=== PATIENT | male | born 1945 | race Caucasian/White ===

== ENCOUNTER 2018-06-30 08:37 | Day surgery (SDC) | payer MEDICARE, SELFPAY ==
[2018-06-30] VITALS (8 sets, daily range): BP systolic 84–156; BP diastolic 45–74; PULSE 58–98; RESP 10–16; TEMP 36.2–37.1; O2SAT 97–100; BMI 23.0
--- NOTE | 2018-06-30 | PATH_ITS ---
[facility] Accession Number: [id number] . 01 Material submitted: . ASCENDING COLON BIOPSY . 02 Diagnosis: Ascending Colon, Biopsy: Fragments of tubular adenoma. MRV/07/04/2018 . 02 Electronically signed: . Mendel Beth MD, PhD, Pathologist NPI- [id number] . 01 Gross description: . ASCENDING COLON BIOPSY: Received in formalin are multiple fragment(s) of cooper, soft tissue measuring 0.5 x 0.5 x 0.2 cm in aggregate submitted entirely in 1 cassette(s) /TRC /TRC . 02 Pathologist provided ICD-10: D12.2 . 02 CPT . 511037 Performed at: [address] [facility] [address] [id number] MD Payam March MD Phone: [phone] Performed at: 02 [facility] [address] [place], [place] [id number] MD Stuart Pollock MD Phone: [phone]
[2018-06-30] MEDS: SODIUM CHLORIDE 0.9% 1,000 ML 200 ML IV (09:21)
--- NOTE | 2018-06-30 09:45 | SUR.PREOP ---
Pt is ready for Endo Suite at this time. at bedside, admissions gate attendant completed, NS at TKO, medications have been reviewed, consent has been signed by Pt and witness. Awaiting MD to sign consent and assess Pt at the bedside.
--- NOTE | 2018-06-30 10:06 | PM.HP.1 ---
History of Present Illness Date Patient Seen: 06/30/18 Time Patient Seen: 10:07 Chief complaint: colonoscopy 13478 Narrative: Patient is a 72-year-old who has never had a colonoscopy here for screening exam. Patient History Medical History COPD (chronic obstructive pulmonary disease) (Chronic) Essential hypertension (Chronic) Surgical History History of bilateral inguinal hernia repair (Resolved) History of tonsillectomy (Resolved) Family & Social History Social History: household members spouse Smoked many years ago Meds Home Medications Medication Instructions Recorded Confirmed Type ASPIRIN (#ASPIRIN CHILDREN'S) 81 mg PO DAILY #0 05/10/12 06/30/18 History colchicine 0.6 mg PO SEEINSTR PRN #0 05/10/12 06/30/18 History fluticasone-salmeterol [Advair 1 puff INHALATION DAILY #0 05/10/12 06/30/18 History Diskus] hydrochlorothiazide 25 mg PO DAILY #0 05/10/12 06/30/18 History tiotropium bromide [Spiriva with 1 dose INHALATION DAILY #0 05/10/12 06/30/18 History HandiHaler] albuterol sulfate 2 puff INHALATION QD-TID PRN 06/30/18 06/30/18 History diltiazem HCl [Cartia XT] 240 mg PO DAILY 06/30/18 06/30/18 History losartan 25 mg PO DAILY 06/30/18 06/30/18 History prednisone 2 mg PO DAILY 06/30/18 06/30/18 History probenecid 500 mg PO DAILY 06/30/18 06/30/18 History rosuvastatin [Crestor] 10 mg PO DAILY 06/30/18 06/30/18 History Allergies Allergy/AdvReac Type Severity Reaction Status Date / Time Penicillin Allergy Unknown Uncoded 02/15/18 12:57 Review of Systems Review of Systems All systems reviewed & are unremarkable except as noted in HPI and below Exam Vital Signs (past 8 hours): - 06/30/18 08:53 Temperature 97.2 F L Pulse Rate 98 H Respiratory Rate 16 Blood Pressure 156/74 H Pulse Oximetry 100 Oxygen Delivery Method Room Air Narrative Exam Narrative: Operative no apparent distress. His eyes are nonicteric. Lungs are clear no rales or rhonchi. Heart regular rate and rhythm no murmur gallop. Abdomen is scaphoid soft lax abdominal wall. Nontender without mass. Alert and oriented x3. Assessment & Plan Plan: Assessment/Plan Narrative: For colonoscopy. Bowel prep went well. I have discussed the procedure and the rationale with the patient including risks of bleeding, perforation which would necessitate a major operation, failure to find remove all lesions and the potential to tattoo. They appeared to understand and wished to proceed.
--- NOTE | 2018-06-30 10:11 | PM.PREOP ---
Pre-operative Note Interval Note Pre-op Check: Yes History & Physical exam performed today by Physician Changes: No ASA Class (for procedural sedation): II
[2018-06-30] MEDS: fentaNYL 250 MCG/5 ML INJ IV (10:16)
[2018-06-30] MEDS: MIDAZOLAM 5 MG/5 ML VIAL IV (10:16)
--- NOTE | 2018-06-30 10:47 | PM.OP.ENDO ---
Operative Date/Time/Diagnoses Date of procedure: 06/30/18 Time of procedure: 10:47 Pre-op diagnosis: Screening exam due to age. First colonoscopy. Post-op diagnosis: same (Two small ascending colon polyps. Had internal hemorrhoids. Sigmoid diverticulosis.) Procedure & Clinicians Study performed: Colonoscopy with cold biopsy Same procedure as scheduled: Yes Indications: Screening Surgeon: Umesh Oliver Procedure Notes SCOAP/Timeout: Performed Procedure in detail: The patient was placed in the left lateral decubitus position and underwent IV sedation directed by the surgeon consisting of fentanyl and Versed. Digital exam was unremarkable. The scope was inserted and advanced through the rectum into the sigmoid, descending, transverse, and ascending colon.[The patient had sigmoid diverticulosis]. The cecum was reached identified by the ileocecal valve and the appendiceal opening. The scope was gradually brought out. Polyps were found at[the ascending colon. Two small lesions adjacent to 1 another were completely removed.]. The scope ultimately was retroflexed in the rectum. The appearance was[remarkable for internal hemorrhoids]. The scope was removed and the patient tolerated the procedure well Scope withdrawal time: 6.5 min Sedation minutes: 23 Findings: diverticulitis, internal hemorrhoids and polyp (Two small right-sided colon) Specimen(s): other (Polyps) Complications: none Recommendations: Colonscopy in 5 years (Unless polyps are not neoplastic. Then he does not need another screening exam.) Follow up: as needed Disposition: PACU
--- NOTE | 2018-09-08 16:10 | PM.PNPO.1 ---
Subjective Date Patient Seen: 09/08/18 Time Patient Seen: 16:10 Interval history: Post-operative day 2 Patient reports he is having some more pain, but not like it was. Overall he is doing well. Exam Vital Signs (past 8 hours): Oxygen Delivery Method Room Air [facility] Head: normal to inspection Face and sinus: tenderness (left side in the area of the previous swelling) Mouth: oral mucosae normal, lip normal, tongue normal, oropharynx normal and restricted motion (but improving) Teeth and gingiva: other (drains present. No intraoral drainage noted.) Assessment & Plan Post-op Postoperative Procedures Operation Date: 06/30/18 09:45 Actual Procedures Side Surgeon p Colonoscopy with biopsies Umesh Oliver MD
--- NOTE | 2018-09-08 16:13 | P.PN_ITS ---
Subjective Date Patient Seen: 09/08/18 Time Patient Seen: 16:10 Interval history: Post-operative day 2 Patient reports he is having some more pain, but not like it was. Overall he is doing well. Exam Vital Signs (past 8 hours): Oxygen Delivery Method Room Air [facility] Head: normal to inspection Face and sinus: tenderness (left side in the area of the previous swelling) Mouth: oral mucosae normal, lip normal, tongue normal, oropharynx normal and restricted motion (but improving) Teeth and gingiva: other (drains present. No intraoral drainage noted.) Assessment & Plan Post-op Postoperative Procedures Operation Date: 06/30/18 09:45 Actual Procedures Side Surgeon p Colonoscopy with biopsies Umesh Oliver MD
== END 2018-06-30 11:51 | disposition home or self-care (01) ==
PROVIDERS: Family Provider Family Medicine; PCP Family Medicine; Visit Provider Specialist
PROC: 0DJD8ZZ Inspection of Lower Intestinal Tract, Via Natural or Artificial Opening Endoscopic (ICD-10-PCS; CPT 45378; principal; 2018-06-30 09:45)
DX: Z12.11 Encounter for screening for malignant neoplasm of colon (principal); J44.9 Chronic obstructive pulmonary disease, unspecified; I10 Essential (primary) hypertension; Z87.891 Personal history of nicotine dependence; K57.30 Diverticulosis of large intestine without perforation or abscess without bleeding; K64.8 Other hemorrhoids; D12.2 Benign neoplasm of ascending colon
CPT/HCPCS: 45380; 88305; 99152; 99153; J2250; J3010

== ENCOUNTER → 2018-10-20 10:55 | Outpatient (CLI) | payer MEDICARE, SELFPAY ==
--- NOTE | 2018-10-20 | DI.RAD.S_ITS ---
PROCEDURE: FL BARIUM SWALLOW INDICATIONS: SWALLOWING ABNORMALITY/ DRY THROAT COMPARISON: None. FINDINGS: Function: There is esophageal dysmotility and decreased peristalsis. There is delayed esophageal clearance. No elicited gastroesophageal reflux. Morphology: Air-contrast images demonstrate normal mucosal morphology. Single contrast views show no esophageal strictures, extrinsic mass effects, or diverticula. Limited images of the stomach demonstrate normal appearance. IMPRESSION: Esophageal dysmotility. Dictated by: Jimmy Christie M.D. on 10/20/2018 at 13:16 Approved by: Jimmy Christie M.D. on 10/20/2018 at 13:17
== END ==
PROVIDERS: Family Provider Family Medicine; PCP Family Medicine; Visit Provider Family Medicine
DX: R13.10 Dysphagia, unspecified (principal); J39.2 Other diseases of pharynx; K22.4 Dyskinesia of esophagus
CPT/HCPCS: 74220

== ENCOUNTER → 2020-07-04 14:54 | Outpatient (CLI) | payer MEDICARE, SELFPAY ==
--- NOTE | 2020-07-04 | DI.RAD.S_ITS ---
PROCEDURE: XR CERVICAL SPINE 2V OR 3V INDICATIONS: shoulder pain no trauma TECHNIQUE: 4 view(s) of the cervical spine were acquired. COMPARISON: None. FINDINGS: Bones: No fractures or dislocations to the C7 level. The lateral masses of C1 appear intact on the odontoid view. No suspicious bony lesions. There is mild anterolisthesis seen at the C4-C5 level. There is moderate to severe disc space narrowing seen at C5-C6, with mild to moderate disc space narrowing at C6-C7. Endplate irregularity and sclerosis are seen, which are most prominent at the C5-C6 level. There is overall straightening of the normal cervical lordosis. Soft tissues: No prevertebral soft tissue swelling. The visualized lung apices are unremarkable. IMPRESSION: Cervical spine degenerative changes are seen, which are most prominent at the C5-C6 level. Dictated by: Asif Arthur M.D. on 07/04/2020 at 15:02 Approved by: Asif Arthur M.D. on 07/04/2020 at 15:03
--- NOTE | 2020-07-04 | DI.RAD.S_ITS ---
PROCEDURE: XR LUMBAR SPINE 2-3V INDICATIONS: LBP no trauma TECHNIQUE: 3 views of the lumbar spine were acquired. COMPARISON: [facility], CR, XR CERVICAL SPINE 2V OR 3V, 07/04/2020, 14:57. [facility], CR, L-SPINE 2-3 VIEWS, 12/23/2008, 9:57. FINDINGS: Bones: There is mild to moderate levoconvex thoracolumbar scoliotic curvature. There is minimal retrolisthesis seen at L1-L2 and L2-L3. There is at least moderate disc space narrowing at L5-S1. There is moderate disc space narrowing at L4-L5. Relatively prominent lower lumbar spine facet arthropathy is seen. Bridging anterior osteophytes are seen T12 through L3. 5 nonrib-bearing, lumbar type vertebral bodies are seen. No displaced fractures are seen. No suspicious lytic or blastic lesions are seen. Soft tissues: Overlying bowel gas pattern is normal. No suspicious soft tissue calcifications. Atherosclerotic calcification is noted. IMPRESSION: Lumbar degenerative changes are seen, which are most prominent at the L5-S1 level. Mild to moderate dextroconvex scoliotic curvature is seen. The degenerative changes have progressed compared to 2008. Dictated by: Asif Arthur M.D. on 07/04/2020 at 15:03 Approved by: Asif Arthur M.D. on 07/04/2020 at 15:05
== END ==
PROVIDERS: Family Provider Family Medicine; PCP Family Medicine; Referring Provider Family Medicine; Visit Provider Family Medicine
DX: M54.2 Cervicalgia (principal); M54.5 Low back pain; M47.812 Spondylosis without myelopathy or radiculopathy, cervical region; M25.519 Pain in unspecified shoulder; M47.817 Spondylosis without myelopathy or radiculopathy, lumbosacral region; M41.85 Other forms of scoliosis, thoracolumbar region
CPT/HCPCS: 72040; 72100

== ENCOUNTER → 2023-08-31 11:45 | Outpatient (CLI) | payer MEDICARE, SELFPAY ==
--- NOTE | 2023-08-31 11:47 | DI.CT.S_ITS ---
PROCEDURE: CT CHEST ABD PEL W CON INDICATIONS: Upper abdominal pain, unspecified TECHNIQUE: After the administration of oral and intravenous contrast, axial sections acquired from the supraclavicular neck to the pubic symphysis. Coronal and sagittal reformats were performed. For radiation dose reduction, the following was used: automated exposure control, adjustment of mA and/or kV according to patient size. COMPARISON: None. FINDINGS: Image quality: Excellent. CHEST: Lower Neck: No enlarged lymph nodes. Thyroid: Within normal limits. Axillae: No enlarged lymph nodes. Chest Wall: Unremarkable. Lungs and Airways: Multiple regions of centrilobular ground-glass and nodularity. For instance, a 6 mm nodule in the central left lower lobe (series 3, image 138). Additional 9 mm juxtapleural nodule in the right upper lobe (series 3, image 81). Pleura: No pneumothorax or pleural effusions. Heart: Heart size is normal. No pericardial effusion. Three-vessel coronary calcifications. Thoracic Vessels: The aorta and pulmonary arteries demonstrate normal size. Mediastinum and [place]: No enlarged lymph nodes. Esophagus: No wall thickening. Small hiatal hernia. ABDOMEN: Liver: No solid mass. Gallbladder and biliary tree: No gallstones or biliary dilation. Diffusely thickened wall. Mild peribiliary enhancement of the common bile duct. Spleen: Normal size. Pancreas: No ductal dilation. Adrenal glands: No adrenal nodules. Kidneys: No hydronephrosis. No solid mass. No complex renal cysts which requires follow-up. Left-sided junctional cortical defects, likely from prior infection. Stomach and Bowel: Colonic diverticulosis without evidence of diverticulitis. Peritoneum: No abnormal intraperitoneal fluid. No free air. Ventral Wall: No hernia. Abdominal Nodes: No retroperitoneal or mesenteric adenopathy by size criteria. Vessels: Aorta and inferior vena cava are normal in size. PELVIS: Pelvic Organs: Unremarkable. Bladder: Unremarkable. Pelvic Nodes: No enlarged lymph nodes. Miscellaneous: No inguinal hernias are seen. Bones: Mild enhancement seen within the spinal canal at L4-5 (series 2, image 81). IMPRESSION: 1. Multiple centrilobular ground-glass and nodularity, which probably represents a mild infection. Given size of nodules, recommend follow-up in three months to ensure resolution. 2. Diffusely thickened gallbladder wall and peribiliary enhancement of the common bile duct. Correlate with right upper quadrant pain to exclude a process such as ascending cholangitis. 3. Mild enhancement seen within the spinal canal at L4-5. This is likely degenerative, but an epidural lesion is not excluded. Recommend lumbar MRI for further characterization. Dictated by: Morro Springer M.D. on 08/31/2023 at 16:48 Approved by: Morro Springer M.D. on 08/31/2023 at 17:06
[2023-08-31 12:24] LABS: Estimated Glomerular Filt Rate > 60 mL/min (>60)
== END ==
PROVIDERS: Emergency Medicine; Family Provider Family Medicine; PCP Family Medicine; Referring Provider Family Medicine; Visit Provider Family Medicine
DX: R91.8 Other nonspecific abnormal finding of lung field (principal); R10.10 Upper abdominal pain, unspecified; R63.4 Abnormal weight loss; R06.02 Shortness of breath; I25.10 Atherosclerotic heart disease of native coronary artery without angina pectoris; K44.9 Diaphragmatic hernia without obstruction or gangrene
CPT/HCPCS: 36415; 71260; 74177; 82565; Q9967

== ENCOUNTER → 2023-12-21 14:07 | Outpatient (CLI) | payer MEDICARE, SELFPAY ==
--- NOTE | 2023-12-21 14:10 | DI.US.S_ITS ---
PROCEDURE: US EXTREMITY NONVASC LOWER RT INDICATIONS: ACHILLES TENDON MASS RLE TECHNIQUE: Real-time scanning was performed of the right lower leg and ankle, with image documentation. COMPARISON: None. FINDINGS: Focused ultrasound examination of posterior lower leg and ankle along the expected course of calf muscles and Achilles tendon shows tiny anechoic fluid collection medial and posterior to distal Achilles tendon insertion measures 4 x 6 x 3 mm in size. There is a complex fluid collection noted adjacent to distal right calf posterior to the Achilles tendon measures 3.2 x 1 x 0.4 cm in size with internal debris. Complex fluid collection is also noted involving right mid calf with possible tendon seen extending through the collection and measures up to 3.2 x 2.2 x 1.5 cm in size. Diffuse subcutaneous soft tissue edema throughout right calf extending to ankle level is seen. No discrete solid mass is seen. No definite full-thickness Achilles tendon rupture. IMPRESSION: 1. Multiple fluid collections in mid calf and distal calf as well as right heel as described above. No gross full-thickness Achilles tendon rupture. Finding is concerning for partial-thickness tear involving Achilles tendon and possible soft tissue hematoma. Consider MRI of right lower leg for further evaluation. Dictated by: Jabier Escalante M.D. on 12/21/2023 at 16:28 Approved by: Jabier Escalante M.D. on 12/21/2023 at 16:30
== END ==
PROVIDERS: Family Provider Family Medicine; PCP Family Medicine; Referring Provider Family Medicine; Visit Provider Family Medicine
DX: M67.871 Other specified disorders of synovium, right ankle and foot (principal)
CPT/HCPCS: 76882

== ENCOUNTER → 2025-03-11 12:00 | Outpatient (CLI) | payer MEDICARE, SELFPAY ==
--- NOTE | 2025-03-11 12:03 | DI.CT.S_ITS ---
PROCEDURE: CT ABDOMEN PELVIS W CON INDICATIONS: RLQ PAIN ACHING WITH SHARP JABS SUSPECT POSS MALIG TECHNIQUE: After the administration of intravenous contrast, axial sections acquired from the lung bases to the pubic symphysis. Coronal and sagittal reformats were performed. For radiation dose reduction, the following was used: automated exposure control, adjustment of mA and/or kV according to patient size. COMPARISON: None. FINDINGS: Image quality: Diagnostic. Lower Chest: No significant findings. ABDOMEN: Liver: No solid mass. Gallbladder: Gallbladder is distended. No radiopaque gallstones . Questionable diffuse gallbladder wall thickening is seen. Biliary ducts: No biliary dilation. Pancreas: No ductal dilation. Spleen: Size is within normal limits. Adrenal Glands: No adrenal nodules. Kidneys and Ureters: No hydronephrosis. Bilateral renal cysts are seen. No solid mass. No complex renal cystic lesion which requires follow up. Stomach and Bowel: There is no bowel obstruction. Oral contrast is seen extending to ascending colon. Appendix is not definitively seen. No focal inflammatory changes are noted in right lower quadrant. Sigmoid diverticulosis without CT evidence of acute diverticulitis. No abscess collection. Peritoneum: No abnormal intraperitoneal fluid. No free air. Ventral Wall: No significant ventral hernia. Abdominal Nodes: No retroperitoneal or mesenteric adenopathy by size criteria. Vessels: Aorta and inferior vena cava are normal in size. PELVIS: Pelvic Organs: Enlarged prostate gland with mass effect on floor of urinary bladder is noted. Bladder: No bladder wall thickening, accounting for underdistention. Pelvic Nodes: No enlarged lymph nodes. Miscellaneous: No inguinal hernias are seen. Bones: No aggressive osseous abnormality. No acute vertebral body compression fracture. Degenerative disc disease throughout lower thoracic and lumbar spine is seen. IMPRESSION: 1. No acute inflammatory process is seen in abdomen or pelvis. 2. No bowel obstruction. No secondary CT signs of acute appendicitis. Sigmoid diverticulosis without evidence of acute diverticulitis. No free fluid or free air. No abscess collection. 3. Distended gallbladder, with questionable mild diffuse gallbladder wall thickening. No calcified gallstones. No pericholecystic fluid. No gross biliary ductal dilatation. Dictated by: Jabier Escalante M.D. on 03/11/2025 at 15:04 Approved by: Jabier Escalante M.D. on 03/11/2025 at 16:23
== END ==
PROVIDERS: Family Provider Family Medicine; PCP Family Medicine; Referring Provider Family Medicine; Visit Provider Family Medicine
DX: N28.1 Cyst of kidney, acquired (principal); K57.30 Diverticulosis of large intestine without perforation or abscess without bleeding; R10.31 Right lower quadrant pain; N40.0 Benign prostatic hyperplasia without lower urinary tract symptoms; M51.34 Other intervertebral disc degeneration, thoracic region; M51.369 Other intervertebral disc degeneration, lumbar region without mention of lumbar back pain or lower extremity pain
CPT/HCPCS: 74177; Q9967

== ENCOUNTER 2025-08-15 20:59 | Emergency (ER) | payer MEDICARE, SELFPAY ==
[2025-08-15] VITALS (9 sets, daily range): BP systolic 101–141; BP diastolic 52–72; PULSE 55–71; RESP 9–18; TEMP 36.2; O2SAT 95–99
--- NOTE | 2025-08-15 20:59 | EKG_ITS ---
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
--- NOTE | 2025-08-15 20:59 | DI.CT.S_ITS ---
PROCEDURE: CT ANGIO HEAD AND NECK INDICATIONS: stroke like sx TECHNIQUE: After the administration of intravenous contrast, 1 mm thick sections acquired from the aortic arch through the [place]. 3-dimensional rxbpgmt-oqqsaqbav-nelmbfdmyl (MIP) and/or volume rendering reformats were acquired of the central intracranial vasculature and neck separately. For radiation dose reduction, the following was used: automated exposure control, adjustment of mA and/or kV according to patient size. COMPARISON: Same-day CT head. FINDINGS: Image quality: Diagnostic. Cerebral CT Angiogram: Internal carotid arteries: Moderate stenosis of the 53% of the proximal, cervical, left internal carotid artery secondary to atherosclerotic disease. No significant stenosis of the right internal carotid artery. Anterior cerebral arteries: Unremarkable. No significant stenosis. No occlusion. No aneurysm. Middle cerebral arteries: Unremarkable. No significant stenosis. No occlusion. No aneurysm. Posterior cerebral arteries: Unremarkable. No significant stenosis. No occlusion. No aneurysm. Basilar artery: Unremarkable. No significant stenosis. No occlusion. No aneurysm. Vertebral arteries: Unremarkable as visualized. Dural venous sinuses: Unremarkable given phase of enhancement. Other: Redemonstrated chronic infarct of the left posterior PICA territory. The PICA is patent. Neck CT Angiogram: Internal carotid arteries: Unremarkable. No significant stenosis. No dissection or occlusion. Common carotid arteries: Unremarkable. No significant stenosis. No dissection or occlusion. External carotid arteries: Unremarkable. No occlusion. Vertebral arteries: Unremarkable. No significant stenosis. No dissection or occlusion. Aortic Arch and Mediastinum: Partially visualized aortic arch unremarkable without evidence of aneurysm. Origins of the great vessels unremarkable. Other: Degenerative disc disease in the cervical spine with uncovertebral and facet arthrosis. Chronic mucosal thickening with osseous remodeling consistent with chronic sinusitis. IMPRESSION: No large vessel occlusion, aneurysm, or dissection. No acute intracranial arterial abnormality. Moderate stenosis of left proximal internal carotid artery, 53% by NASCET criteria. Bilateral upper lobe pulmonary nodules measure up to 8 mm on the right, recommend follow-up chest CT in 3 months Any quantitative measurements of stenosis were performed using NASCET criteria. Dictated by: Sven Panda M.D. on 08/15/2025 at 21:18 Approved by: Sven Panda M.D. on 08/15/2025 at 21:27
--- NOTE | 2025-08-15 20:59 | DI.CT.S_ITS ---
PROCEDURE: CT STROKE INDICATIONS: stroke like sx TECHNIQUE: Noncontrast 4.5 mm thick angled axial sections acquired from the foramen magnum to the vertex, with coronal reformats. For radiation dose reduction, the following was used: automated exposure control, adjustment of mA and/or kV according to patient size. COMPARISON: None. FINDINGS: Image quality: Diagnostic. CSF spaces: Basal cisterns are patent. No extra-axial fluid collections. The ventricles are symmetric in size and shape. Brain: Chronic encephalomalacia of the left posterior lateral cerebral hemisphere corresponding to a PICA territory prior infarct. No intracranial bleeds or mass effect. There is cerebral volume loss, with resultant ventricular and sulcal prominence. There are periventricular and deep white matter chronic small vessel ischemic changes. There is intracranial internal carotid artery atherosclerosis. Skull and face: Calvarium and visualized facial bones appear intact, without suspicious lesions. Sinuses: Osseous thickening within the bilateral maxillary sinuses and concerning for chronic sinusitis. No opacification. IMPRESSION: 1. No acute intracranial pathology. 2. 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 3. Generalized volume loss and mild supratentorial white matter microvascular ischemic change. Communication: The above findings were discussed with the ordering clinician, Dr. Camarena, by Dr. Panda via telephone on 08/15/2025 at 9:15 p.m. [place] standard time. This study fulfills neurological imaging criteria for inclusion or exclusion of acute stroke therapies based on available published neurological guidelines. Dictated by: Sven Panda M.D. on 08/15/2025 at 21:12 Approved by: Sven Panda M.D. on 08/15/2025 at 21:15
[2025-08-15 21:25] LABS: Add Manual Diff / Slide Review NO; Hematocrit 29.8 % (41-53); Hemoglobin 10.1 g/dL (13.5-17.5); Lymphocytes Absolute Auto 1900 /uL (1100-4500); Mean Corpuscular HGB Conc 34.0 % (30-36); Mean Corpuscular Hemoglobin 32.4 PG (26-34); Mean Corpuscular Volume 95.5 fL (80-100); Platelet Count 262 X10^3/uL (150-400)
[2025-08-15] MEDS: ONDANSETRON 4 MG/2 ML INJ IV (21:29)
[2025-08-15 21:34] LABS: INR 0.9 (0.9-1.3); Prothrombin Time 9.8 SECONDS (9.4-12.5)
--- NOTE | 2025-08-15 21:34 | ED.NEUROSD ---
HPI - Neuro Symptoms/Deficit General Chief Complaint: Neuro Symptoms/Deficit Stated Complaint: Code Stroke Time Seen by Provider: 08/15/25 21:08 Source: patient and EMS Mode of arrival: EMS History of Present Illness HPI Narrative: 79-year-old male with history of prior stroke status post lytic treatment about 6 years ago per at bedside, lives at home, ambulates with minimal assistance, tense not stand very long, prefers working and tinkering in sitting position, takes baby aspirin daily. Last known well 8:15 p.m. per , had rum drinks tonight, left the room while he was in the bedroom, then heard a thud, patient had fallen, no chest pain, no obvious head or brain injury. But after the fall patient seemed to be confused and decreased interaction. No facial droop, no weakness to 1 arm or 1 leg. Denies pain to head, face, neck, back, chest, abdomen, pelvis, upper extremities, lower extremities. On Anticoagulants: No Related Data Home Medications ?Medication ?Instructions ?Recorded ?Confirmed ASPIRIN (#ASPIRIN CHILDREN'S) 81 mg PO DAILY ##0 05/10/12 06/30/18 colchicine 0.6 mg tablet 0.6 mg PO SEEINSTR PRN Pain, 05/10/12 06/30/18 Moderate ##0 fluticasone 100 mcg-salmeterol 50 1 puff inhalation DAILY ##0 05/10/12 06/30/18 mcg/dose blistr powdr for inhalation (Advair Diskus) hydrochlorothiazide 25 mg tablet 25 mg PO DAILY ##0 05/10/12 06/30/18 tiotropium bromide 18 mcg capsule 1 dose inhalation DAILY ##0 05/10/12 06/30/18 with inhalation device (Spiriva with HandiHaler) albuterol sulfate 90 mcg/actuation 2 puff inhalation QD-TID PRN 06/30/18 06/30/18 aerosol inhaler Wheezing diltiazem HCl 240 mg 240 mg PO DAILY 06/30/18 06/30/18 capsule,extended release 24 hr (Cartia XT) losartan 25 mg tablet 25 mg PO DAILY 06/30/18 06/30/18 prednisone 2 mg tablet,delayed 2 mg PO DAILY 06/30/18 06/30/18 release probenecid 500 mg tablet 500 mg PO DAILY 06/30/18 06/30/18 rosuvastatin 10 mg tablet (Crestor) 10 mg PO DAILY 06/30/18 06/30/18 Allergies Allergy/AdvReac Type Severity Reaction Status Date / Time Penicillin Allergy Unknown Uncoded 02/15/18 12:57 Review of Systems Hematologic/Lymphatic On Anticoagulants: No Patient History Medical History (Updated 08/16/25 @ 04:48 by Romie Camarena MD) Essential hypertension COPD (chronic obstructive pulmonary disease) Surgical History (Updated 06/30/18 @ 10:09 by Umesh Oliver MD) History of bilateral inguinal hernia repair History of tonsillectomy Family History (Updated 06/30/18 @ 10:09 by Umesh Oliver MD) Other Congestive heart failure Social History household members: spouse Smoking Status: Never smoker Smoking Status: Never smoker Alcohol type: hard liquor Exam Narrative Exam Narrative: GENERAL: Well-developed patient, in mild distress. HEAD: Atraumatic. Normocephalic. EYES: Pupils equal round and reactive. Extraocular motions intact. No scleral icterus. No injection or drainage. ENT: Nose without bleeding, purulent drainage. Throat without erythema, tonsillar hypertrophy or exudate. Airway patent. NECK: Trachea midline. Non tender CARDIOVASCULAR: Regular rate and rhythm without murmurs, gallops, or rubs. RESPIRATORY: Clear to auscultation. Breath sounds equal bilaterally. No wheezes, rales, or rhonchi. GASTROINTESTINAL: Abdomen soft, non-tender, nondistended. EXTREMITIES: No edema or joint tenderness. BACK: Nontender without deformity or crepitance. No flank tenderness. NEURO: Slow speech, no obvious facial droop, conjugate gaze, pupils reactive. Moves extremities spontaneously, does not seem to be able to lift either extremity very well off the gurney, nor either extremity up off the gurney, unclear strength baseline. SKIN: No rash or erythema of visible areas Initial Vital Signs Initial Vital Signs: Vital Signs Pulse Rate 71 08/15/25 21:09 Pulse Oximetry 98 08/15/25 21:09 Course Orders Ordered: ED Orders 08/15/25 20:[address] angio head and neck Stat Urine Drug Screen, Rapid Stat EKG-12 Lead Stat 08/15/25 21:02 Complete Blood Count AUTO DIFF Stat Comprehensive Metabolic Panel Stat Ethanol (ETOH) Stat PTT Partial Thromboplastin Harry Stat Prothrombin Time INR Stat Troponin & CK Cardiac Panel Stat 08/15/25 21:29 COVID19 -Nasal RAPID Stat Discontinued Medications Sodium Chloride (Normal Saline 0.9%) 1,000 mls @ 1,000 mls/hr IV BOLUS PRN PRN Reason: Fluid replacement Last Infusion: 08/15/25 23:09 Dose: Infused Documented By: Admin: 08/15/25 22:30 Dose: 1,000 mls/hr Documented By: GLORIA Sodium Chloride (Normal Saline 0.9%) 1,000 mls @ 1,000 mls/hr IV BOLUS ONE Stop: 08/16/25 02:23 Last Infusion: 08/16/25 04:44 Dose: Infused Documented By: Admin: 08/16/25 01:34 Dose: 1,000 mls/hr Documented By: Ondansetron HCl (Ondansetron 4 Mg/2 Ml Inj) 4 mg IV NOW ONE Stop: 08/15/25 21:27 Last Admin: 08/15/25 21:29 Dose: 4 mg Documented By: CELE Vital Signs Vital signs: Vital Signs - 8 hr 08/15/25 21:30 08/15/25 21:30 08/15/25 21:50 Pulse Rate 68 70 Respiratory Rate 16 18 Blood Pressure 141/63 H Pulse Oximetry 99 Oxygen Delivery Method 08/15/25 22:00 08/15/25 22:00 08/15/25 22:30 Pulse Rate 55 L Respiratory Rate 9 L Blood Pressure 104/53 L 104/54 L Pulse Oximetry Oxygen Delivery Method 08/15/25 22:30 08/15/25 23:00 08/15/25 23:00 Pulse Rate 64 61 Respiratory Rate 17 13 Blood Pressure 101/72 Pulse Oximetry 95 98 Oxygen Delivery Method 08/15/25 23:30 08/15/25 23:30 08/16/25 00:00 Pulse Rate 60 Respiratory Rate 10 L Blood Pressure 105/52 L 105/52 L Pulse Oximetry 98 Oxygen Delivery Method 08/16/25 00:00 08/16/25 00:30 08/16/25 00:30 Pulse Rate 62 62 Respiratory Rate 12 10 L Blood Pressure 106/50 L Pulse Oximetry 99 98 Oxygen Delivery Method Room Air 08/16/25 00:31 08/16/25 00:31 08/16/25 01:00 Pulse Rate 61 Respiratory Rate 12 Blood Pressure 105/51 L 103/51 L Pulse Oximetry 99 Oxygen Delivery Method 08/16/25 01:00 08/16/25 01:30 08/16/25 01:30 Pulse Rate 60 56 L Respiratory Rate 9 L 9 L Blood Pressure 90/45 L Pulse Oximetry 98 97 Oxygen Delivery Method 08/16/25 01:32 08/16/25 01:32 08/16/25 02:00 Pulse Rate 64 60 Respiratory Rate 12 12 Blood Pressure 92/45 L Pulse Oximetry 97 98 Oxygen Delivery Method 08/16/25 02:00 08/16/25 02:30 08/16/25 02:30 Pulse Rate 57 L Respiratory Rate 9 L Blood Pressure 113/56 L 108/51 L Pulse Oximetry 99 Oxygen Delivery Method 08/16/25 03:00 08/16/25 03:00 08/16/25 03:30 Pulse Rate 57 L 59 L Respiratory Rate 8 L 7 L Blood Pressure 102/52 L Pulse Oximetry 99 98 Oxygen Delivery Method 08/16/25 03:30 08/16/25 04:00 08/16/25 04:00 Pulse Rate 59 L Respiratory Rate 8 L Blood Pressure 104/54 L 109/52 L Pulse Oximetry 97 Oxygen Delivery Method 08/16/25 04:30 08/16/25 04:31 08/16/25 04:31 Pulse Rate 67 67 Respiratory Rate 11 L 14 Blood Pressure 131/60 Pulse Oximetry 98 98 Oxygen Delivery Method 08/16/25 04:42 08/16/25 04:42 Pulse Rate 78 Respiratory Rate 15 Blood Pressure 132/64 Pulse Oximetry 96 Oxygen Delivery Method Room Air MDM - Neuro Symptoms/Deficit Lab Data Attestation: I reviewed the patient's lab results. Lab results narrative: POC glucose 81. White blood cell count 8200, hemoglobin 10.1, platelets adequate. Glucose 87. BUN 43 with creatinine 1.53, serum CO2 19. Sodium 137 potassium 3.7 normal. Alkaline phosphatase slight elevation, other liver functions normal. Troponin negative/unmeasurable. COVID negative. Blood alcohol level 263 at 9:00 p.m. noted 08/15/25 21:02 08/15/25 21:02 Labs: Lab Results 08/15/25 08/15/25 08/15/25 Range/Units 21:02 21:02 21:03 WBC 8.2 (4.5-11.0) X10^3/uL RBC 3.12 L (4.5-5.9) X10^6/uL Hgb 10.1 L (13.5-17.5) g/dL Hct 29.8 L (41-53) % MCV 95.5 (80-100) fL MCH 32.4 (26-34) PG MCHC 34.0 (30-36) % RDW 13.5 (11.6-14.8) % Plt Count 262 (150-400) X10^3/uL Neut % (Auto) 49.7 L (50-75) % Lymph % (Auto) 23.0 L (25-40) % [place] % (Auto) 17.7 H (3-14) % Eos % (Auto) 8.5 H (2-4) % Baso % (Auto) 1.1 (0-2) % Neut # (Auto) 4100 (7283-2714) /uL Lymph # (Auto) 1900 (7519-5762) /uL [place] # (Auto) 1400 H (0-900) /uL Eos # (Auto) 700 H (0-450) /uL Baso # (Auto) 100 (0-100) /uL PT 9.8 (9.4-12.5) SECONDS INR 0.9 (0.9-1.3) APTT 26 (25.1-36.5) SECONDS Sodium 137 (137-145) mmol/L Potassium 3.7 (3.4-5.1) mmol/L Chloride 106 (98-107) mmol/L Carbon Dioxide 19 L (22-32) mmol/L BUN 43 H (9-20) mg/dL Creatinine 1.53 H (0.66-1.25) mg/dL Estimated GFR 46 L (>60) mL/min BUN/Creatinine Ratio 28.1 H (6-22) Glucose 87 (70-99) mg/dL POC Whole Bld Glucose 81 (70-99) mg/dL Calcium 9.2 (8.4-10.2) mg/dL Total Bilirubin 0.2 (0.2-1.3) mg/dL AST 59 (17-59) IU/L ALT 41 (<50) IU/L Alkaline Phosphatase 128 H (38-126) U/L Total Creatine Kinase 84 (55-170) U/L Troponin I < 0.012 (0.01-0.034) ng/mL Total Protein 7.4 (6.3-8.2) g/dL Albumin 4.1 (3.5-5.0) g/dL Globulin 3.3 (1.7-4.1) g/dL Albumin/Globulin Ratio 1.2 (1.0-2.8) Ethyl Alcohol 263 H Cancelled (<10) mg/dL SARS-CoV-2 (PCR) (Negative) 08/15/25 Range/Units 21:29 WBC (4.5-11.0) X10^3/uL RBC (4.5-5.9) X10^6/uL Hgb (13.5-17.5) g/dL Hct (41-53) % MCV (80-100) fL MCH (26-34) PG MCHC (30-36) % RDW (11.6-14.8) % Plt Count (150-400) X10^3/uL Neut % (Auto) (50-75) % Lymph % (Auto) (25-40) % [place] % (Auto) (3-14) % Eos % (Auto) (2-4) % Baso % (Auto) (0-2) % Neut # (Auto) (1516-1397) /uL Lymph # (Auto) (4165-1279) /uL [place] # (Auto) (0-900) /uL Eos # (Auto) (0-450) /uL Baso # (Auto) (0-100) /uL PT (9.4-12.5) SECONDS INR (0.9-1.3) APTT (25.1-36.5) SECONDS Sodium (137-145) mmol/L Potassium (3.4-5.1) mmol/L Chloride (98-107) mmol/L Carbon Dioxide (22-32) mmol/L BUN (9-20) mg/dL Creatinine (0.66-1.25) mg/dL Estimated GFR (>60) mL/min BUN/Creatinine Ratio (6-22) Glucose (70-99) mg/dL POC Whole Bld Glucose (70-99) mg/dL Calcium (8.4-10.2) mg/dL Total Bilirubin (0.2-1.3) mg/dL AST (17-59) IU/L ALT (<50) IU/L Alkaline Phosphatase (38-126) U/L Total Creatine Kinase (55-170) U/L Troponin I (0.01-0.034) ng/mL Total Protein (6.3-8.2) g/dL Albumin (3.5-5.0) g/dL Globulin (1.7-4.1) g/dL Albumin/Globulin Ratio (1.0-2.8) Ethyl Alcohol (<10) mg/dL SARS-CoV-2 (PCR) Negative (Negative) Imaging Data CT scan - head: Radiologist's Impression: [address] [address] [address] Scan Report Signed Patient: Bart Doss MR#: [id number] : 1945 Acct:[id number] Age/Sex: 79 / M Date of Service: 08/15/25 Loc: ED Accession Number: [id number] Procedure: CT Stroke Ordering Provider: Romie Camarena MD PROCEDURE: CT STROKE INDICATIONS: stroke like sx TECHNIQUE: Noncontrast 4.5 mm thick angled axial sections acquired from the foramen magnum to the vertex, with coronal reformats. For radiation dose reduction, the following was used: automated exposure control, adjustment of mA and/or kV according to patient size. COMPARISON: None. FINDINGS: Image quality: Diagnostic. CSF spaces: Basal cisterns are patent. No extra-axial fluid collections. The ventricles are symmetric in size and shape. Brain: Chronic encephalomalacia of the left posterior lateral cerebral hemisphere corresponding to a PICA territory prior infarct. No intracranial bleeds or mass effect. There is cerebral volume loss, with resultant ventricular and sulcal prominence. There are periventricular and deep white matter chronic small vessel ischemic changes. There is intracranial internal carotid artery atherosclerosis. Skull and face: Calvarium and visualized facial bones appear intact, without suspicious lesions. Sinuses: Osseous thickening within the bilateral maxillary sinuses and concerning for chronic sinusitis. No opacification. IMPRESSION: 1. No acute intracranial pathology. 2. 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 3. Generalized volume loss and mild supratentorial white matter microvascular ischemic change. Communication: The above findings were discussed with the ordering clinician, Dr. Camarena, by Dr. Panda via telephone on 08/15/2025 at 9:15 p.m. Wyatt standard time. This study fulfills neurological imaging criteria for inclusion or exclusion of acute stroke therapies based on available published neurological guidelines. Dictated by: Sven Panda M.D. on 08/15/2025 at 21:12 Approved by: Sven Panda M.D. on 08/15/2025 at 21:15 CTA - brain/neck: Radiologist's Impression: [place] [address] CT Scan Report Signed Patient: Bart Doss MR#: [id number] : 1945 Acct:[id number] Age/Sex: 79 / M Date of Service: 08/15/25 Loc: ED Accession Number: [id number] Procedure: CT angio head and neck Ordering Provider: Romie Camarena MD PROCEDURE: CT ANGIO HEAD AND NECK INDICATIONS: stroke like sx TECHNIQUE: After the administration of intravenous contrast, 1 mm thick sections acquired from the aortic arch through the [place]. 3-dimensional onpeiiw-kkijptuda-ravesxgehg (MIP) and/or volume rendering reformats were acquired of the central intracranial vasculature and neck separately. For radiation dose reduction, the following was used: automated exposure control, adjustment of mA and/or kV according to patient size. COMPARISON: Same-day CT head. FINDINGS: Image quality: Diagnostic. Cerebral CT Angiogram: Internal carotid arteries: Moderate stenosis of the 53% of the proximal, cervical, left internal carotid artery secondary to atherosclerotic disease. No significant stenosis of the right internal carotid artery. Anterior cerebral arteries: Unremarkable. No significant stenosis. No occlusion. No aneurysm. Middle cerebral arteries: Unremarkable. No significant stenosis. No occlusion. No aneurysm. Posterior cerebral arteries: Unremarkable. No significant stenosis. No occlusion. No aneurysm. Basilar artery: Unremarkable. No significant stenosis. No occlusion. No aneurysm. Vertebral arteries: Unremarkable as visualized. Dural venous sinuses: Unremarkable given phase of enhancement. Other: Redemonstrated chronic infarct of the left posterior PICA territory. The PICA is patent. Neck CT Angiogram: Internal carotid arteries: Unremarkable. No significant stenosis. No dissection or occlusion. Common carotid arteries: Unremarkable. No significant stenosis. No dissection or occlusion. External carotid arteries: Unremarkable. No occlusion. Vertebral arteries: Unremarkable. No significant stenosis. No dissection or occlusion. Aortic Arch and Mediastinum: Partially visualized aortic arch unremarkable without evidence of aneurysm. Origins of the great vessels unremarkable. Other: Degenerative disc disease in the cervical spine with uncovertebral and facet arthrosis. Chronic mucosal thickening with osseous remodeling consistent with chronic sinusitis. IMPRESSION: No large vessel occlusion, aneurysm, or dissection. No acute intracranial arterial abnormality. Moderate stenosis of left proximal internal carotid artery, 53% by NASCET criteria. Bilateral upper lobe pulmonary nodules measure up to 8 mm on the right, recommend follow-up chest CT in 3 months Any quantitative measurements of stenosis were performed using NASCET criteria. Dictated by: Sven Panda M.D. on 08/15/2025 at 21:18 Approved by: Sven Panda M.D. on 08/15/2025 at 21:27 ECG Data Attestation: I personally reviewed and interpreted this ECG as follows: Interpretation: 2139, normal sinus rhythm with rate of 64, no obvious ST segment elevation or depression changes. Right bundle branch block however noted. OR 174, QRS 144, QTC 468. [facility] Narrative Medical decision making narrative: 79-year-old male with history of stroke treated with thrombolytics 6 years ago per , has been drinking rum this evening, last known well 8:15 p.m., left bedroom area and heard a thud, patient was on the floor, seemed confused, 911 called, transport possible stroke. No shaking or seizure activity. No focal weakness but decreased mental status and slurred speech. POC glucose 81. CT head noncontrast. IMPRESSION: 1. No acute intracranial pathology. 2. Chronic left inferior cerebellar infarct with associated encephalomalacia corresponding to the left PICA territory.3. Generalized volume loss and mild supratentorial white matter microvascular ischemic change. See radiology report. CT angiogram head and neck vessels. IMPRESSION: No large vessel occlusion, aneurysm, or dissection. No acute intracranial arterial abnormality. Moderate stenosis of left proximal internal carotid artery, 53% by NASCET criteria. Bilateral upper lobe pulmonary nodules measure up to 8 mm on the right, recommend follow-up chest CT in 3 months. See radiology report. EKG shows sinus rhythm with rate 64, right bundle branch block. Lab data: POC glucose 81. White blood cell count 8200, hemoglobin 10.1, platelets adequate. Glucose 87. BUN 43 with creatinine 1.53, serum CO2 19. Sodium 137 potassium 3.7 normal. Alkaline phosphatase slight elevation, other liver functions normal. Troponin negative/unmeasurable. COVID negative. Blood alcohol level 263 at 9:00 p.m. noted. informed, blood alcohol level more than 3 times legal limit. Further observe for improvement of mental status and safe ambulation. IV fluid bolus. 0500, mental status improving, no signs or symptoms alcohol withdrawal, clear speech, was able to ambulate to the bathroom. Discharged home with to be driven home, daughter living in the same household can assist patient with getting out of car and into home in into bed. Advised to stop drinking alcohol. Discharged home with family. Return precautions discussed. Substance abuse discusion: No known opiate exposures, no opiate use, intoxication with alcohol tonight, offered Narcan nasal spray for discharge, declined by patient/. Discharge Plan Departure Patient Disposition: Home Clinical Impression: Alcohol intoxication Activity Restrictions/Additional Instructions: Altered mental status confusion, initial concern for possible stroke. CT head showed old stroke sequelae changes but no definite new stroke. CT angiogram of the head and neck vessels did show mild narrowing of 1 of the internal carotid arteries but not enough to warrant any surgical intervention at this time. Serum studies showed markedly elevated alcohol level of 267 (more than 3 times the legal limit). You were washed many hours in the emergency department, your mental status improved. You were able to ambulate over to the bathroom. You were requesting to go home. You seems steady on your feet after many hours of observation. Discharged home. Encouraged to not drink alcohol. Follow up with your regular doctor on Tuesday advised. Return to this/emergency department for any change worsening symptoms or any concerns prior. Prescriptions: No Action hydrochlorothiazide 25 MG tablet 25 mg PO DAILY Qty: 0 fluticasone propion-salmeterol [Advair Diskus] 100 MCG/50 MCG blister with device 1 puff Inhalation DAILY Qty: 0 tiotropium bromide [Spiriva with HandiHaler] 18 MCG capsule, w/inhalation device 1 dose Inhalation DAILY Qty: 0 ASPIRIN (#ASPIRIN CHILDREN'S) 81 mg PO DAILY Qty: 0 colchicine 0.6 MG tablet 0.6 mg PO SEEINSTR PRN (Reason: Pain, Moderate) Qty: 0 Patient Comments: Has been more than a year since this has been taken. Takes for Gout attacks only prednisone 2 mg Tablet,Delayed Release (Dr/Ec) 2 mg PO DAILY rosuvastatin [Crestor] 10 mg Tablet 10 mg PO DAILY losartan 25 mg Tablet 25 mg PO DAILY diltiazem HCl [Cartia XT] 240 mg Capsule,Extended Release 24hr 240 mg PO DAILY probenecid 500 mg Tablet 500 mg PO DAILY albuterol sulfate 90 mcg/actuation Hfa Aerosol Inhaler 2 puff Inhalation QD-TID PRN (Reason: Wheezing) Referrals: Georeg Rivera MD [Primary Care Provider, Family Practice] Stand Alone Forms: Patient Portal/API
[2025-08-15 21:36] LABS: PTT Partial Thromboplastin Tim 26 SECONDS (25.1-36.5)
[2025-08-15 21:39] LABS: Alanine Aminotransferase 41 IU/L (<50); Albumin 4.1 g/dL (3.5-5.0); Albumin Globulin Ratio 1.2 (1.0-2.8); Alkaline Phosphatase 128 U/L (38-126); Blood Urea Nitrogen 43 mg/dL (9-20); Calcium 9.2 mg/dL (8.4-10.2); Carbon Dioxide 19 mmol/L (22-32); Chloride 106 mmol/L (98-107); Creatine Kinase 84 U/L (55-170); Estimated Glomerular Filt Rate 46 mL/min (>60); Globulin 3.3 g/dL (1.7-4.1); Glucose 87 mg/dL (70-99); HEMOLYSIS < 15 (0-50); Potassium 3.7 mmol/L (3.4-5.1); Sodium 137 mmol/L (137-145); Total Protein 7.4 g/dL (6.3-8.2)
[2025-08-15 21:50] LABS: Troponin I < 0.012 ng/mL (0.01-0.034)
[2025-08-15 21:50] LABS: COVID19 -Nasal RAPID Negative (Negative)
[2025-08-15 22:03] LABS: Ethanol (ETOH) 263 mg/dL (<10)
[2025-08-15] MEDS: SODIUM CHLORIDE 0.9% 1,000 ML 1000 ML IV (22:30)
[2025-08-16] VITALS (14 sets, daily range): BP systolic 90–132; BP diastolic 45–64; PULSE 56–78; RESP 7–15; O2SAT 96–99
[2025-08-16] MEDS: SODIUM CHLORIDE 0.9% 1,000 ML 1000 ML IV (01:34)
--- NOTE | 2025-08-16 04:46 | PC.NURSE ---
Patient came in with ETOH elevated. At this time patient is A&Ox4, ambulated with only standby assist. and patient wanting to go home now. Provider notified at this time.
== END 2025-08-16 05:06 | disposition home or self-care (01) ==
PROVIDERS: Emergency Provider Emergency Medicine; Family Provider Family Medicine; PCP Family Medicine
DX: F10.129 Alcohol abuse with intoxication, unspecified (principal); Y90.8 Blood alcohol level of 240 mg/100 ml or more; W19.XXXA Unspecified fall, initial encounter; Z79.82 Long term (current) use of aspirin
CPT/HCPCS: 36415; 70450; 70496; 70498; 80053; 80320; 82550; 82962; 84484; 85025; 85610; 85730; 87635; 93005; 96361; 96374; 99284; J2405; J7030; Q9967